=== PATIENT | female | born 1935 | race Caucasian/White ===

== ENCOUNTER → 2017-06-24 | Outpatient (CLI) | payer MEDICARE, OTHER | END | disposition home or self-care (01) | LOC: ROC 13:29 | PROVIDERS: ATTEND Radiology Radiation Oncology | DX: D05.11 Intraductal carcinoma in situ of right breast (principal) | CPT/HCPCS: G0463 ==

== ENCOUNTER 2019-02-17 09:12 | Outpatient (CLI) | payer MEDICARE | END 2019-02-17 23:59 | disposition home or self-care (01) | LOC: CFH 09:12 | PROVIDERS: ATTEND Nurse Practitioner Family | DX: R55 Syncope and collapse (principal) | CPT/HCPCS: 70450 ==